=== PATIENT | male | born 1980 ===

== ENCOUNTER 2021-12-13 19:29 | Inpatient (IN) | payer BC ==
[2021-12-14 02:11] LABS: Basophils % (Auto) 0.2 % (0.0-1.8); Eosinophils % (Auto) 0.4 % (0.0-4.3); Hemoglobin 16.1 gm/dl (11.8-15.2); Lymphocytes # (Auto) 1.5 K/mm3 (1.2-5.4); Lymphocytes % (Auto) 21.2 % (13.4-35.0); Mean Corpuscular HGB Conc 34 % (32-34); Mean Corpuscular Volume 86 fl (84-94); Monocytes # (Auto) 0.4 K/mm3 (0.0-0.8); Monocytes % (Auto) 6.3 % (0.0-7.3); Platelet Count 259 K/mm3 (140-440); Red Blood Count 5.57 M/mm3 (3.65-5.03); Red Cell Distribution Width 13.9 % (13.2-15.2)
[2021-12-14 02:28] LABS: Alanine Aminotransferase 21 units/L (7-56); Albumin 4.1 g/dL (3.9-5); BUN/Creatinine Ratio 23; Blood Urea Nitrogen 21 mg/dL (9-20); Calcium 8.8 mg/dL (8.4-10.2); Hemolysis Index 8
[2021-12-14] MEDS ORDERED: SODIUM CHLORIDE 0.9% 1000 ML 1,000 ML IV ONE ×4 (02:44→08:15)
[2021-12-14] MEDS ORDERED: INSULIN REGULAR, HUMAN 100 UNITS/1 ML IV ONE (02:46)
[2021-12-14 03:05] LABS: Bilirubin,Urine NEG (Negative); Blood,Urine NEG (Negative); Color,Urine Colorless (Yellow); Mucus,Urine FEW /HPF; Protein,Urine <15 mg/dL mg/dL (Negative); RBC,Urine < 1.0 /HPF (0.0-6.0); Urobilinogen,Urine < 2.0 mg/dL (<2.0); WBC,Urine < 1.0 /HPF (0.0-6.0)
--- NOTE | 2021-12-14 03:18 | Emergency Department Report ---
ED General Adult HPI - General Chief complaint: Altered Mental Status Stated complaint: INFECTION Source: patient Mode of arrival: Ambulatory Limitations: Language Barrier - History of Present Illness Initial comments: Patient is a 41-year-old male with no past medical history presents to the ED with complaint of persistent generalized weakness, generalized fatigue, polydipsia, polyuria, unintentional weight loss for the last 3 months. Patient states that he often experiences dry mouth with lack of appetite. Patient also complains of unintentional weight loss in the last 6 months. Patient denies dizziness, syncope, chest pain, shortness of breath, nausea and vomiting or diarrhea, abdominal pain, dysuria, urinary frequency and urgency, fever and chills. MD Complaint: generalized weakness, polydipsia, polyuria, increased thirst -: Gradual, month(s) (3) Radiation: non-radiation Severity scale (0 -10): 3 Quality: dull Consistency: constant Improves with: none Worsens with: none Associated Symptoms: denies other symptoms, loss of appetite, malaise, weakness (Generalized weakness). denies: confusion, cough, diaphoresis, fever/chills, headaches, nausea/vomiting, rash, seizure, shortness of breath, syncope Treatments Prior to Arrival: none ED Review of Systems ROS: Stated complaint: INFECTION Other details as noted in HPI Constitutional: malaise, weakness (Generalized). denies: chills, fever Eyes: denies: eye pain, eye discharge, vision change ENT: denies: ear pain, throat pain Respiratory: denies: cough, shortness of breath, wheezing Cardiovascular: denies: chest pain, palpitations Endocrine: no symptoms reported, increased thirst, increased urine, unexplained weight loss Gastrointestinal: denies: abdominal pain, nausea, vomiting, diarrhea Genitourinary: denies: urgency, dysuria Musculoskeletal: denies: back pain, joint swelling, arthralgia Skin: denies: rash, lesions Neurological: denies: headache, weakness, paresthesias, abnormal gait, vertigo Psychiatric: denies: anxiety, depression Hematological/Lymphatic: denies: easy bleeding, easy bruising ED Physical Exam - General Limitations: Language Barrier General appearance: alert, in no apparent distress - Head Head exam: Present: atraumatic, normocephalic, normal inspection - Eye Eye exam: Present: normal appearance, PERRL, EOMI Pupils: Present: normal accommodation - ENT ENT exam: Present: normal exam, normal orophraynx, mucous membranes moist, TM's normal bilaterally, normal external ear exam - Neck Neck exam: Present: normal inspection, full ROM. Absent: tenderness - Respiratory Respiratory exam: Present: normal lung sounds bilaterally. Absent: respiratory distress, wheezes, rales, rhonchi, chest wall tenderness, accessory muscle use, decreased breath sounds, prolonged expiratory, other - Cardiovascular Cardiovascular Exam: Present: regular rate, normal rhythm, normal heart sounds. Absent: systolic murmur, diastolic murmur, rubs, gallop - GI/Abdominal GI/Abdominal exam: Present: soft, normal bowel sounds. Absent: tenderness, guarding, rebound, hyperactive bowel sounds, hypoactive bowel sounds, mass - Extremities Exam Extremities exam: Present: normal inspection, full ROM, normal capillary refill - Back Exam Back exam: Present: normal inspection, full ROM. Absent: tenderness, CVA tenderness (R), CVA tenderness (L), muscle spasm, paraspinal tenderness, vertebral tenderness - Neurological Exam Neurological exam: Present: alert, oriented X3, CN II-XII intact, normal gait, reflexes normal - Psychiatric Psychiatric exam: Present: normal affect, normal mood - Skin Skin exam: Present: warm, dry, intact, normal color. Absent: rash ED Course Vital Signs 12/13/21 20:36 Temperature 97.7 F Pulse Rate 82 Respiratory 16 Rate Blood Pressure 123/90 O2 Sat by Pulse 98 Oximetry ED Medical Decision Making - Lab Data Result diagrams: 12/14/21 02:03 12/14/21 02:03 - Medical Decision Making This is a 41-year-old male with no past medical history presents to the ED with complaint of persistent generalized weakness, generalized fatigue, polydipsia, polyuria, unintentional weight loss for the last 3 months. Patient states that he often experiences dry mouth with lack of appetite. Patient also complains of unintentional weight loss in the last 6 months. In the ED, patient is alert and oriented x3 and is not in any distress. Patient is hemodynamically stable. Lab test results were reviewed and showed acute hyponatremia of 124 mmol/L and hypochloremia of 88 mmol/L, hyperglycemia of 779 mg/dL with anion gap of 25. Patient received 2 L of normal saline IV bolus x1, patient also received 15 units of regular insulin IV bolus. Patient case was discussed with the ED attending physician Dr. Reid who agreed with plan of care to admit the patient to the hospital. I therefore discussed the patient's case with the hospitalist physician Dr. Hernandez who admitted the patient to the hospital. Patient was transferred from the fast-track area of the ED to the main ED for insulin drip. - Differential Diagnosis New onset diabetes; dehydration; Hyponatremia, DKA Critical Care Time: Yes Critical care time in (mins) excluding proc time.: 35 Critical care attestation.: If time is entered above; I have spent that time in minutes in the direct care of this critically ill patient, excluding procedure time. Critical care time of 35 minutes spent on review and interpretation of lab test results, discussion with hospitalist physicians, patient and family education regarding care and implications of lab test results and plan of care. Critical Care Time: Critical care time of 35 minutes spent on review and interpretation of lab test results, discussion with hospitalist physicians, patient and family education regarding care and implications of lab test results and plan of care. ED Disposition Clinical Impression: New onset type 2 diabetes mellitus, Acute hyponatremia Diabetic ketoacidosis associated with type 2 diabetes mellitus Qualifiers: Diabetes mellitus complication detail: without coma Qualified Code(s): E11.10 - Type 2 diabetes mellitus with ketoacidosis without coma Hyperglycemia due to type 2 diabetes mellitus Qualifiers: Diabetes mellitus penitentiary insulin use: without termite helper use Qualified Code(s): E11.65 - Type 2 diabetes mellitus with hyperglycemia Disposition: 02 [facility]ORT [facility] Is pt being admited?: Yes Condition: Critical Instructions: Diabetes Mellitus Type 2 in Adults (ED), Diabetic Ketoacidosis (ED), Type 2 Diabetes Mellitus, Self Care, Adult, [id number] Time of Disposition: 03:24 Print Language: LITHUANIAN
[2021-12-14] MEDS ORDERED: MORPHINE 2 MG/1 ML INJ IV PRN ×2 (03:26→04:18)
[2021-12-14] MEDS ORDERED: ACETAMINOPHEN 325 MG TAB PO PRN ×2 (03:26→04:18)
[2021-12-14] MEDS ORDERED: INSULIN REGULAR, HUMAN 100 UNITS/1 ML ONE (03:48)
[2021-12-14] MEDS ORDERED: MORPHINE 4 MG/1 ML INJ IV PRN (04:18)
[2021-12-14] MEDS ORDERED: ONDANSETRON 4 MG/2 ML INJ IV PRN (04:18)
[2021-12-14] MEDS ORDERED: DEXTROSE 50% IN WATER (25GM) 50 ML SYRINGE IV PRN ×2 (04:18→16:04)
[2021-12-14] MEDS ORDERED: MAGNESIUM HYDROXIDE (MOM) ORAL LIQD UDC PO PRN (04:18)
--- NOTE | 2021-12-14 04:28 | History and Physical Report ---
History of Present Illness Date of examination: 12/14/21 Date of admission: 12/14/2021 Chief complaint: Generalized weakness, fatigue History of present illness: 41-year-old male with no significant past medical history presenting to the emergency today complaining of generalized weakness which has been persistent over the past few days. Patient has also indicated that he has been having unintentional weight loss over the past 3 months. Polyuria and po lydipsia, excessive thirst and dry mouth. Denies any chest pain or shortness of breath. No fever or chills. No headache or dizziness and no diaphoresis. Work-up in the emergency room, will globin of 16.9 and hematocrit of 48. Blood glucose 779. Anion gap of 25. BUN of 21 and creatinine of 4.9 Patient is being admitted with DKA. Past History Past Medical History: No medical history Past Surgical History: No surgical history Social history: no significant social history Family history: no significant family history Medications and Allergies Allergies Allergy/AdvReac Type Severity Reaction Status Date / Time No Known Allergies Allergy Verified 12/14/21 03:47 Active Meds: Active Medications Acetaminophen (Acetaminophen 325 Mg Tab) 650 mg PO Q6H PRN PRN Reason: Pain MILD(1-3)/Fever >100.5/TREJO Acetaminophen (Acetaminophen 325 Mg Tab) 650 mg PO Q6H PRN PRN Reason: Pain MILD(1-3)/Fever >100.5/TREJO Dextrose (Dextrose 50% In Water (25gm) 50 Ml Syringe) 0 ml IV Q30MIN PRN; Protocol PRN Reason: Hypoglycemia Insulin Human Regular 100 (units/ Sodium Chloride) 100 mls @ 1 mls/hr IV TITR SIA; Protocol Sodium Chloride (Nacl 0.9% 1000 Ml) 1,000 mls @ 150 mls/hr IV DIRECT SIA Potassium Chloride/Dextrose/Sod Cl (D5w/0.45% Nacl/Kcl 20 Meq) 20 meq in 1,000 mls @ 125 mls/hr IV DIRECT SIA Magnesium Hydroxide (Magnesium Hydroxide (Mom) Oral Liqd Udc) 30 ml PO Q4H PRN PRN Reason: Constipation Morphine Sulfate (Morphine 2 Mg/1 Ml Inj) 2 mg IV Q4H PRN PRN Reason: Pain, Moderate (4-6) Morphine Sulfate (Morphine 2 Mg/1 Ml Inj) 2 mg IV Q4H PRN PRN Reason: Pain, Moderate (4-6) Morphine Sulfate (Morphine 4 Mg/1 Ml Inj) 4 mg IV Q4H PRN PRN Reason: Pain , Severe (7-10) Ondansetron HCl (Ondansetron 4 Mg/2 Ml Inj) 4 mg IV Q8H PRN PRN Reason: Nausea And Vomiting Sodium Chloride (Sodium Chloride 0.9% 10 Ml Flush Syringe) 10 ml IV BID [facility] Last Admin: 12/14/21 04:00 Dose: 10 ml Sodium Chloride (Sodium Chloride 0.9% 10 Ml Flush Syringe) 10 ml IV PRN PRN PRN Reason: LINE FLUSH Sodium Chloride (Sodium Chloride 0.9% 10 Ml Flush Syringe) 10 ml IV BID SIA Sodium Chloride (Sodium Chloride 0.9% 10 Ml Flush Syringe) 10 ml IV PRN PRN PRN Reason: LINE FLUSH Review of Systems Constitutional: fatigue, weakness Ears, nose, mouth and throat: no nasal congestion, no sore throat Cardiovascular: no chest pain, no palpitations Respiratory: no cough, no shortness of breath Gastrointestinal: no nausea, no vomiting, no diarrhea Genitourinary Male: no dysuria, no hematuria Musculoskeletal: no neck pain, no low back pain Integumentary: no rash, no pruritis Neurological: no headaches, no confusion Psychiatric: no anxiety, no depression Endocrine: excessive thirst, polydipsia, polyuria Exam - Constitutional Vitals: Temp Pulse Resp BP Pulse Ox 99.8 F H 75 24 107/78 98 12/13/21 20:39 12/14/21 04:16 12/14/21 04:16 12/14/21 04:16 12/14/21 04:16 General appearance: Present: no acute distress, well-nourished - EENT Eyes: Present: PERRL, EOM intact. Absent: scleral icterus ENT: hearing intact, clear oral mucosa, dentition normal - Neck Neck: Present: supple, normal ROM - Respiratory Respiratory effort: normal Respiratory: bilateral: CTA - Cardiovascular Rhythm: regular Heart Sounds: Present: S1 & S2. Absent: gallop, systolic murmur, diastolic murmur, rub, click - Extremities Extremities: no ischemia, pulses intact, pulses symmetrical, No edema, normal temperature, normal color, Full ROM Peripheral Pulses: within normal limits - Abdominal General gastrointestinal: Present: soft, non-tender, non-distended, normal bowel sounds. Absent: mass - Integumentary Integumentary: Present: clear, warm, dry, normal turgor. Absent: rash - Musculoskeletal Musculoskeletal: strength equal bilaterally - Psychiatric Psychiatric: appropriate mood/affect, intact judgment & insight, memory intact, cooperative - Neurologic Neurologic: CNII-XII intact, no focal deficits, moves all extremities HEART Score - HEART Score Troponin: Troponin T < 0.010 ng/mL (0.00-0.029) 12/14/21 02:44 Results - Labs CBC & Chem 7: 12/14/21 02:03 12/14/21 07:38 Labs: Abnormal lab results 12/14/21 12/14/21 Range/Units 02:03 02:03 RBC 5.57 H (3.65-5.03) M/mm3 Hgb 16.1 H (11.8-15.2) gm/dl Hct 48.0 H (35.5-45.6) % Seg Neutrophils % 71.9 H (40.0-70.0) % Sodium 124 L (137-145) mmol/L Chloride 88.0 L (98-107) mmol/L Carbon Dioxide 16 L (22-30) mmol/L BUN 21 H (9-20) mg/dL Glucose 779 H* (75-100) mg/dL Alkaline Phosphatase 149 H (35-129) units/L Assessment and Plan - Patient Problems (1) Diabetic ketoacidosis associated with type 2 diabetes mellitus Current Visit: No Status: Acute Qualifiers: Diabetes mellitus complication detail: without coma Qualified Code(s): E11.10 - Type 2 diabetes mellitus with ketoacidosis without coma Plan to address problem: Patient admitted and placed on insulin drip and IV fluid. Checks closely. (2) Pseudohyponatremia Current Visit: No Status: Acute Plan to address problem: Possibly secondary to the hyperglycemia. Will monitor chemistry. (3) DVT prophylaxis Current Visit: Yes Status: Acute Plan to address problem: Patient placed on subcutaneous heparin. (4) Full code status Current Visit: Yes Status: Acute Plan to address problem: Patient is full code.
[2021-12-14] MEDS ORDERED: SODIUM CHLORIDE 0.9% 1000 ML 1,000 ML IV SCH (04:30)
[2021-12-14] MEDS ORDERED: INSULIN REGULAR, HUMAN 100 UNITS in SODIUM CHLORIDE 0.9% 99 ML IV SCH (05:00)
[2021-12-14 05:23] LABS: BUN/Creatinine Ratio 19; Blood Urea Nitrogen 19 mg/dL (9-20); Calcium 9.1 mg/dL (8.4-10.2); Hemolysis Index 5
[2021-12-14] MEDS: D5W/0.45% NACL/KCL 20 MEQ 20 MEQ/1,000 ML BAG IV SCH ×2 (05:58→13:32)
[2021-12-14 08:04] LABS: BUN/Creatinine Ratio 20; Blood Urea Nitrogen 16 mg/dL (9-20); Calcium 8.3 mg/dL (8.4-10.2); Hemolysis Index 6
[2021-12-14] MEDS ORDERED: LACTATED RINGERS 1,000 ML IV ONE ×2 (08:15→12:00)
[2021-12-14] MEDS ORDERED: FAMOTIDINE 20 MG/2 ML INJ IV ONE (09:00)
[2021-12-14 11:27] LABS: Blood Urea Nitrogen 13 mg/dL (9-20); Calcium 7.5 mg/dL (8.4-10.2); Hemolysis Index 6
[2021-12-14 11:29] LABS: BUN/Creatinine Ratio 26
--- NOTE | 2021-12-14 11:51 | Event Note ---
<GHADA ORTIZ - Last Filed: 12/14/21 17:59> Date: 12/14/21 This is a 41-year old male with no significant past medical history admitted for HHNS 2/2 new onset type 2 DM. Patient seen and examined at the [facility]. Fully AAO, on RA. Patient remains on insulin gtt and IVF resuscitation per DKA protocol. Anion gap is 16 this am, however BG remains in the high 200s. Additonal IVF administered, continue to monitor anion gap and BG. Will transition to subq insulin once BG and anion gap improved. Thorough education provided to patient at the [facility] in regards to his diagnosis and plan of care using alba phone interpretation. All questions and concerns were addressed at this time. Infrastructure Solutions Architect also consulted for further diabetic education and nursing start accucheck education as well. +CCT 30 minutes <EKTA CANTRELL - Last Filed: 12/15/21 06:32> I saw and evaluated the patient. I agree with the findings and the plan of care as documented in the Nurse Practitioner's~note, with the following corrections and additions. Advance care planning
[2021-12-14] MEDS ORDERED: POTASSIUM CHLORIDE ER 20 MEQ TAB PO SCH (12:00)
[2021-12-14] MEDS ORDERED: INSULIN GLARGINE 100 UNITS/ML SUB-Q NR (16:03)
[2021-12-14] MEDS: INSULIN LISPRO 100 UNIT/ML SUB-Q SCH ×2 (17:25→21:38)
--- NOTE | 2021-12-14 17:25 | Consultation ---
History of Present Illness Consult date: 12/14/21 Requesting physician: GUILLE ORNELAS Reason for consult: other (DKA) History of present illness: 41-year-old male with no significant past medical history presenting to the emergency today complaining of generalized weakness which has been persistent over the past few days. Patient has also indicated that he has been having unintentional weight loss over the past 3 months. Polyuria and polydipsia, excessive thirst and dry mouth. Denies any chest pain or shortness of breath. No fever or chills. No headache or dizziness and no diaphoresis. Work-up in the emergency room, will globin of 16.9 and hematocrit of 48. Blood glucose 779. Anion gap of 25. BUN of 21 and creatinine of 4.9 Patient is being admitted with DKA. A critical care consult was placed Patient seen and examined. Vitals, labs, medications, chart reviewed. Currently in insulin infusion. His is visiting at the bedside. Past History Past Medical History: No medical history Past Surgical History: No surgical history Social history: no significant social history Family history: no significant family history Medications and Allergies Allergies Allergy/AdvReac Type Severity Reaction Status Date / Time No Known Allergies Allergy Verified 12/15/21 10:09 Home Medications Medication Instructions Recorded Confirmed Last Taken Type Fluconazole 150 mg PO QDAY 12/15/21 12/15/21 Unknown History Nystatin [Nystatin SUSP] 5 ml PO QID 12/15/21 12/15/21 Unknown History Valacyclovir HCl [Valacyclovir] 1,000 mg PO QDAY 12/15/21 12/15/21 Unknown History Active Meds: Active Medications Acetaminophen (Acetaminophen 325 Mg Tab) 650 mg PO Q6H PRN PRN Reason: Pain MILD(1-3)/Fever >100.5/TREJO Dextrose (Dextrose 50% In Water (25gm) 50 Ml Syringe) 50 ml IV Q30MIN PRN; Protocol PRN Reason: Hypoglycemia Famotidine (Famotidine 20 Mg Tab) 20 mg PO QDAY SIA Insulin Human Regular 100 (units/ Sodium Chloride) 100 mls @ 1 mls/hr IV TITR SIA; Protocol Stop: 12/14/21 18:00 Last Titration: 12/14/21 17:05 Dose: 3 units/hr, 3 mls/hr Insulin Glargine (Insulin Glargine 100 Units/Ml) 25 units SUB-Q ONCE NR Stop: 12/14/21 18:00 Last Admin: 12/14/21 17:07 Dose: 25 units Insulin Glargine (Insulin Glargine 100 Units/Ml) 25 units SUB-Q QHS SIA Insulin Human Lispro (Insulin Lispro 100 Unit/Ml) 0 unit SUB-Q ACHS SIA; Protocol Magnesium Hydroxide (Magnesium Hydroxide (Mom) Oral Liqd Udc) 30 ml PO Q4H PRN PRN Reason: Constipation Morphine Sulfate (Morphine 2 Mg/1 Ml Inj) 2 mg IV Q4H PRN PRN Reason: Pain, Moderate (4-6) Morphine Sulfate (Morphine 4 Mg/1 Ml Inj) 4 mg IV Q4H PRN PRN Reason: Pain , Severe (7-10) Ondansetron HCl (Ondansetron 4 Mg/2 Ml Inj) 4 mg IV Q8H PRN PRN Reason: Nausea And Vomiting Sodium Chloride (Sodium Chloride 0.9% 10 Ml Flush Syringe) 10 ml IV BID SIA Last Admin: 12/14/21 08:59 Dose: 10 ml Sodium Chloride (Sodium Chloride 0.9% 10 Ml Flush Syringe) 10 ml IV PRN PRN PRN Reason: LINE FLUSH Review of Systems All systems: negative (as in HPI) Physical Examination Vital signs: Vital Signs Temp Pulse Resp BP Pulse Ox 97.7 F 82 16 123/90 98 12/13/21 20:36 12/13/21 20:36 12/13/21 20:36 12/13/21 20:36 12/13/21 20:36 General appearance: no acute distress, alert Eyes: non-icteric ENT: oropharynx dry Neck: supple, no lymphadenopathy, no JVD Effort: normal Ascultation: Bilateral: clear Cardiovascular: regular rate and rhythm, other (S1,S2) Gastrointestinal: normoactive bowel sounds, soft, non-tender Integumentary: normal Extremities: no cyanosis, no edema, pink and warm, pulses normal Musculoskeletal: no deformities normal mental status, non-focal exam, motor strength normal and mood appropriate, affect normal Results - Laboratory Findings CBC and BMP: 12/15/21 05:59 12/15/21 05:59 Abnormal lab findings: Abnormal Labs 05/24/22 05/24/22 05/24/22 02:03 02:03 04:28 RBC 5.57 H Hgb 16.1 H Hct 48.0 H Seg Neutrophils % 71.9 H Sodium 124 L Potassium Chloride 88.0 L Carbon Dioxide 16 L BUN 21 H Creatinine Glucose 779 H* POC Glucose Hemoglobin A1c Calcium Phosphorus 2.40 L Magnesium 2.40 H Alkaline Phosphatase 149 H 12/14/21 12/14/21 12/14/21 04:28 04:55 05:49 RBC Hgb Hct Seg Neutrophils % Sodium 134 L D Potassium 3.3 L D Chloride 96.3 L Carbon Dioxide 17 L BUN Creatinine Glucose 514 H* POC Glucose 434 H 365 H Hemoglobin A1c Calcium Phosphorus Magnesium Alkaline Phosphatase 12/14/21 12/14/21 12/14/21 07:38 08:03 09:01 RBC Hgb Hct Seg Neutrophils % Sodium Potassium 3.5 L Chloride 108.1 H Carbon Dioxide 20 L BUN Creatinine Glucose 312 H POC Glucose 282 H 258 H Hemoglobin A1c Calcium 8.3 L Phosphorus Magnesium Alkaline Phosphatase 12/14/21 12/14/21 12/14/21 10:52 10:52 10:57 RBC Hgb Hct Seg Neutrophils % Sodium Potassium 3.3 L Chloride 111.0 H Carbon Dioxide 21 L BUN Creatinine 0.5 L Glucose 224 H POC Glucose 191 H Hemoglobin A1c Calcium 7.5 L Phosphorus 2.20 L Magnesium Alkaline Phosphatase 12/14/21 12/14/21 11:13 12:53 RBC Hgb Hct Seg Neutrophils % Sodium Potassium Chloride Carbon Dioxide BUN Creatinine Glucose POC Glucose 167 H Hemoglobin A1c 13.3 H Calcium Phosphorus Magnesium Alkaline Phosphatase Assessment and Plan Diabetic ketoacidosis-new diagnosis Hyponatremia Continue with insulin infusion, hourly accucheck, serial BMPs per DKA protocol Replete electrolytes per protocol Once anion gap is closed, transition to weight based insulin therapy, consistent carb diet Volume resuscitation per DKA protocol VTE prophylaxis Get HbA1C, TSH and fasting lipid profile VTE prophylaxis- Enoxaparin Diabetic education CONDITION: CRITICAL PROGNOSIS; GOOD CODE STATUS; FULL CODE Discussed care plan with nursing care team, pharmacy and primary service The high probability of a clinically significant, sudden or life threatening deterioration of the endocrine system required my full and direct attention, intervention and personal management. The aggregate critical care time was [33] minutes. This time is in addition to time spent performing reported procedures but includes the following: [x] Data Review and interpretation [x] Patient assessment and monitoring of vital signs [x] Documentation [x] Medication orders and management
[2021-12-14 18:34] LABS: Blood Urea Nitrogen 10 mg/dL (9-20); Hemolysis Index 9
[2021-12-14 18:35] LABS: BUN/Creatinine Ratio 17
[2021-12-14] MEDS ORDERED: POTASSIUM PHOSPHATE 15 MMOL in SODIUM CHLORIDE 0.9% 250ML 250 ML IV ONE (18:39)
[2021-12-15 06:26] LABS: Basophils % (Auto) 0.2 % (0.0-1.8); Eosinophils # (Auto) 0.1 K/mm3 (0.0-0.4); Eosinophils % (Auto) 0.7 % (0.0-4.3); Hematocrit 40.3 % (35.5-45.6); Hemoglobin 13.7 gm/dl (11.8-15.2); Lymphocytes # (Auto) 1.9 K/mm3 (1.2-5.4); Lymphocytes % (Auto) 25.3 % (13.4-35.0); Mean Corpuscular HGB Conc 34 % (32-34); Mean Corpuscular Volume 84 fl (84-94); Monocytes # (Auto) 0.5 K/mm3 (0.0-0.8); Monocytes % (Auto) 7.2 % (0.0-7.3); Platelet Count 195 K/mm3 (140-440); Red Blood Count 4.82 M/mm3 (3.65-5.03); Red Cell Distribution Width 13.6 % (13.2-15.2)
[2021-12-15 06:41] LABS: Alanine Aminotransferase 19 units/L (7-56); Albumin 3.1 g/dL (3.9-5); Blood Urea Nitrogen 8 mg/dL (9-20); Calcium 8.2 mg/dL (8.4-10.2); Hemolysis Index 12
[2021-12-15 06:46] LABS: BUN/Creatinine Ratio 11
[2021-12-15] MEDS: INSULIN LISPRO 100 UNIT/ML SUB-Q SCH ×4 (09:09→22:52)
[2021-12-15] MEDS: FAMOTIDINE 20 MG TAB PO SCH (09:10)
--- NOTE | 2021-12-15 13:54 | Electrocardiograph Report ---
[facility] Test Date: 2021-12-14 Test Time: 07:34:23 Pat Name: SHANNON NAILS Department: Room: A366 Gender: M Customer Service Technician: BRYAN : 1980 Requested By: DANTE SOLIMAN Order Number: [id number] Reading MD: Bharath Marie Measurements Intervals [place] Rate: 69 P: 42 NE: 142 QRS: -1 QRSD: 98 T: -2 QT: 400 QTc: 430 Interpretive Statements Sinus rhythm No previous ECG available for comparison Electronically Signed On 12-15-2021 13:54:23 EDT by Bharath Marie
--- NOTE | 2021-12-15 18:19 | Progress Note ---
Assessment and Plan -- Diabetic ketoacidosis associated with type 2 diabetes mellitus Current Visit: No Status: Acute Qualifiers: Diabetes mellitus complication detail: without coma Qualified Code(s): E11.10 - Type 2 diabetes mellitus with ketoacidosis without coma Plan to address problem: Patient admitted and placed on insulin drip and IV fluid. Checks closely. -- Pseudohyponatremia Current Visit: No Status: Acute Plan to address problem: Possibly secondary to the hyperglycemia. Will monitor chemistry. --Hypokalemia, repleted and monitor -- DVT prophylaxis Current Visit: Yes Status: Acute Plan to address problem: Patient placed on subcutaneous heparin. -- Full code status Current Visit: Yes Status: Acute Plan to address problem: Patient is full code. 12/15/21: Patient is OFF insulin drip, blood glucose improving, continue to adjust insulin doses. A1c 13.3, discussed with patient family about the comp liance. Subjective Date of service: 12/15/21 Interval history: Patient seen and examined. Medical records and medication list reviewed. No acute event overnight noted by the RN. Patient denies any chest pain or difficulty breathing. Patient is tolerating diet. Discussed plan of care at bedside with patient. Objective - Exam Narrative Exam: GENERAL: well-developed and well-nourished male lying on bed appeared to be in no discomfort. HEENT: Normocephalic. Atraumatic. No conjunctival congestion or icterus. Patient has moist mucous membranes. NECK: Supple. Trachea midline. CHEST/LUNGS: Clear to auscultated bilaterally, breathing nonlabored. No wheezes crackles or rhonchi. HEART/CARDIOVASCULAR: Regular in rate and rhythm. S1 and S2 positive. ABDOMEN: Abdomen is soft, nontender. Patient has normal bowel sounds. SKIN: There is no rash. Warm and dry. NEURO: No focal motor deficit. Follows command. MUSCULOSKELETAL: No joint effusion or tenderness. EXTRIMITY: No edema, no cyanosis or clubbing. PSYCH: Cooperative. - Constitutional Vitals: Vital Signs - 12hr 12/15/21 12/15/21 12/15/21 09:15 10:00 15:31 Temperature 97.7 F Pulse Rate 63 Respiratory 18 18 Rate Blood Pressure 102/72 O2 Sat by Pulse 95 98 97 Oximetry 12/15/21 15:32 Temperature Pulse Rate 63 Respiratory Rate Blood Pressure O2 Sat by Pulse 97 Oximetry - Labs CBC & Chem 7: 12/15/21 05:59 12/15/21 05:59 Labs: Abnormal lab results 12/14/21 12/14/21 12/14/21 Range/Units 17:04 17:11 18:01 Sodium (137-145) mmol/L Chloride 110.9 H (98-107) mmol/L BUN (9-20) mg/dL Creatinine 0.6 L (0.8-1.3) mg/dL Glucose 148 H (75-100) mg/dL POC Glucose 140 H 222 H (70-105) mg/dL Calcium 8.0 L (8.4-10.2) mg/dL Phosphorus 2.30 L (2.5-4.5) mg/dL Total Protein (6.3-8.2) g/dL Albumin (3.9-5) g/dL 12/14/21 12/15/21 12/15/21 Range/Units 18:32 05:59 08:59 Sodium 134 L (137-145) mmol/L Chloride (98-107) mmol/L BUN 8 L (9-20) mg/dL Creatinine 0.7 L (0.8-1.3) mg/dL Glucose 261 H (75-100) mg/dL POC Glucose 255 H 366 H (70-105) mg/dL Calcium 8.2 L (8.4-10.2) mg/dL Phosphorus (2.5-4.5) mg/dL Total Protein 5.2 L D (6.3-8.2) g/dL Albumin 3.1 L (3.9-5) g/dL 12/15/21 12/15/21 Range/Units 11:23 16:14 Sodium (137-145) mmol/L Chloride (98-107) mmol/L BUN (9-20) mg/dL Creatinine (0.8-1.3) mg/dL Glucose (75-100) mg/dL POC Glucose 290 H 311 H (70-105) mg/dL Calcium (8.4-10.2) mg/dL Phosphorus (2.5-4.5) mg/dL Total Protein (6.3-8.2) g/dL Albumin (3.9-5) g/dL HEART Score - HEART Score Troponin: Troponin T < 0.010 ng/mL (0.00-0.029) 12/14/21 02:44
[2021-12-15] MEDS ORDERED: INSULIN GLARGINE 100 UNITS/ML SUB-Q SCH (22:00)
--- NOTE | 2021-12-16 07:24 | Progress Note ---
Subjective Date of service: 12/16/21 Objective Vital Signs - 12hr 12/15/21 12/15/21 20:24 22:00 Temperature 98.0 F Pulse Rate 58 L Respiratory 18 20 Rate Blood Pressure 102/73 O2 Sat by Pulse 98 98 Oximetry Constitutional: no acute distress, alert Eyes: non-icteric ENT: oropharynx dry Neck: supple, no lymphadenopathy, no JVD Effort: normal Ascultation: Bilateral: clear Cardiovascular: regular rate and rhythm, other (S1,S2) Gastrointestinal: normoactive bowel sounds, soft, non-tender Integumentary: normal Extremities: no cyanosis, no edema, pink and warm, pulses normal Neurologic: normal mental status, non-focal exam, motor strength normal and Psychiatric: mood appropriate, affect normal CBC and BMP: 12/15/21 05:59 12/15/21 05:59 Abnormal lab findings: Abnormal Labs 12/14/21 12/14/21 12/14/21 02:03 02:03 04:28 RBC 5.57 H Hgb 16.1 H Hct 48.0 H Seg Neutrophils % 71.9 H Sodium 124 L Potassium Chloride 88.0 L Carbon Dioxide 16 L BUN 21 H Creatinine Glucose 779 H* POC Glucose Hemoglobin A1c Calcium Phosphorus 2.40 L Magnesium 2.40 H Alkaline Phosphatase 149 H Total Protein Albumin 12/14/21 12/14/21 12/14/21 04:28 04:55 05:49 RBC Hgb Hct Seg Neutrophils % Sodium 134 L D Potassium 3.3 L D Chloride 96.3 L Carbon Dioxide 17 L BUN Creatinine Glucose 514 H* POC Glucose 434 H 365 H Hemoglobin A1c Calcium Phosphorus Magnesium Alkaline Phosphatase Total Protein Albumin 12/14/21 12/14/21 12/14/21 07:38 08:03 09:01 RBC Hgb Hct Seg Neutrophils % Sodium Potassium 3.5 L Chloride 108.1 H Carbon Dioxide 20 L BUN Creatinine Glucose 312 H POC Glucose 282 H 258 H Hemoglobin A1c Calcium 8.3 L Phosphorus Magnesium Alkaline Phosphatase Total Protein Albumin 12/14/21 12/14/21 12/14/21 10:52 10:52 10:57 RBC Hgb Hct Seg Neutrophils % Sodium Potassium 3.3 L Chloride 111.0 H Carbon Dioxide 21 L BUN Creatinine 0.5 L Glucose 224 H POC Glucose 191 H Hemoglobin A1c Calcium 7.5 L Phosphorus 2.20 L Magnesium Alkaline Phosphatase Total Protein Albumin 12/14/21 12/14/21 12/14/21 11:13 12:53 17:04 RBC Hgb Hct Seg Neutrophils % Sodium Potassium Chloride Carbon Dioxide BUN Creatinine Glucose POC Glucose 167 H 140 H Hemoglobin A1c 13.3 H Calcium Phosphorus Magnesium Alkaline Phosphatase Total Protein Albumin 12/14/21 12/14/21 12/14/21 17:11 18:01 18:32 RBC Hgb Hct Seg Neutrophils % Sodium Potassium Chloride 110.9 H Carbon Dioxide BUN Creatinine 0.6 L Glucose 148 H POC Glucose 222 H 255 H Hemoglobin A1c Calcium 8.0 L Phosphorus 2.30 L Magnesium Alkaline Phosphatase Total Protein Albumin 12/15/21 12/15/21 12/15/21 05:59 08:59 11:23 RBC Hgb Hct Seg Neutrophils % Sodium 134 L Potassium Chloride Carbon Dioxide BUN 8 L Creatinine 0.7 L Glucose 261 H POC Glucose 366 H 290 H Hemoglobin A1c Calcium 8.2 L Phosphorus Magnesium Alkaline Phosphatase Total Protein 5.2 L D Albumin 3.1 L 12/15/21 12/15/21 16:14 22:45 RBC Hgb Hct Seg Neutrophils % Sodium Potassium Chloride Carbon Dioxide BUN Creatinine Glucose POC Glucose 311 H 260 H Hemoglobin A1c Calcium Phosphorus Magnesium Alkaline Phosphatase Total Protein Albumin
[2021-12-16] MEDS: INSULIN LISPRO 100 UNIT/ML SUB-Q SCH ×2 (09:33→12:42)
[2021-12-16] MEDS: FAMOTIDINE 20 MG TAB PO SCH (09:34)
[2021-12-16] MEDS ORDERED: metFORMIN 850 MG TAB PO SCH (11:00)
--- NOTE | 2021-12-16 12:26 | Discharge Summary ---
Providers - Providers Date of Admission: 12/14/21 04:18 Date of discharge: 12/16/21 Attending physician: CHARLENE PARKER 12/14/21 03:26 Consult to Dietitian/Nutrition [CONS] Routine Physician Instructions: Reason For Exam: Reason for Consult: diabetic diet 12/14/21 04:18 Consult to Dietitian/Nutrition [CONS] Routine Physician Instructions: Reason For Exam: DKA Reason for Consult: Nutrition Recommendations Reason for Consult: Diet education Consult to Physician [CONS] Routine Comment: Consulting Provider: JUAN RAMON DIAZ Physician Instructions: Reason For Exam: DKA Primary care physician: FEDERICA ROJAS Hospitalization Condition: Critical Hospital course: 41-year-old male with no significant past medical history presenting to the emergency complaining of generalized weakness which has been persistent over the past few days. Patient has also indicated that he has been having unintentional weight loss over the past 3 months along with polyuria and polydipsia, excessive thirst and dry mouth. Work-up in the emergency room showed hemoglobin of 16.9 and hematocrit of 48. Blood glucose 779. Anion gap of 25. BUN of 21 and creatinine of 4.9 Patient was admitted for DKA, given iv fluid bolus in the ER, admitted to ICU on insulin drip. Patient was weaned off from insulin drip as BG improved and anion gap closed. Patient was continued on iv fluid, consistent carb diet, Placed on Long-acting insulin and SSI. Adjusted long acting insulin dose to better improve BG level, counselled for dietary and insulin regimen compliance. Patient was then discharged home in stable condition with outpt f/u. Disposition: HOME HEALTH CARE SERVICE Final Discharge Diagnosis (Prints w/discharge instructions): -- Diabetic ketoacidosis. -- Diabetes mellitus type 2. -- Pseudohyponatremia. -- Hypokalemia Time spent for discharge: 34 minutes Core Measure Documentation - Palliative Care Palliative Care/ Comfort Measures: Not Applicable - Core Measures Any of the following diagnoses?: none Exam - Physical Exam Narrative exam: GENERAL: well-developed and well-nourished male lying on bed appeared to be in no discomfort. HEENT: Normocephalic. Atraumatic. No conjunctival congestion or icterus. Patient has moist mucous membranes. NECK: Supple. Trachea midline. CHEST/LUNGS: Clear to auscultated bilaterally, breathing nonlabored. No wheezes crackles or rhonchi. HEART/CARDIOVASCULAR: Regular in rate and rhythm. S1 and S2 positive. ABDOMEN: Abdomen is soft, nontender. Patient has normal bowel sounds. SKIN: There is no rash. Warm and dry. NEURO: No focal motor deficit. Follows command. MUSCULOSKELETAL: No joint effusion or tenderness. EXTRIMITY: No edema, no cyanosis or clubbing. PSYCH: Cooperative. - Constitutional Vitals: Temp Pulse Resp BP Pulse Ox 98.0 F 58 L 20 102/73 98 12/15/21 20:24 12/15/21 20:24 12/15/21 22:00 12/15/21 20:24 12/15/21 22:00 Plan Activity: advance as tolerated Weight Bearing Status: Weight Bear as Tolerated Diet: diabetic Special Instructions: record blood sugar diary Follow up with: FEDERICA ROJAS MD [Primary Care Provider] - 7 Days CRISTOFER GARLAND MD [Staff Physician] - 7 Days Prescriptions: Insulin Glargine [Lantus VIAL] 25 units SUB-Q QHS 30 Days metFORMIN [Glucophage] 850 mg PO BIDDIAB #60 tablet Lispro Insulin [HumaLOG] 0 unit SUB-Q ACHS 30 Days
[2021-12-16 13:40] VITALS: BP 100/68
== END 2021-12-16 16:00 | disposition home or self-care (01) | DRG 639 ==
LOC: ED 19:29 → CC1 12-14 04:18 → 3A 12-15 00:43
PROVIDERS: ADMIT Internal Medicine Geriatric Medicine; ATTEND Internal Medicine
DX: E11.10 Type 2 diabetes mellitus with ketoacidosis without coma (principal); E11.65 Type 2 diabetes mellitus with hyperglycemia; E87.6 Hypokalemia
CPT/HCPCS: 36415; 80048; 80053; 81001; 82962; 83036; 83735; 84100; 84484; 85025; 93005; G0378; J3480; J3490; J7510; Q9967; J1815; J7030; J7050; J7120